=== PATIENT | female | born 1965 | race Caucasian/White ===

== ENCOUNTER → 2017-12-22 | Outpatient (CLI) | payer BC ==
--- NOTE | 2017-12-22 15:19 | US ---
EXAMINATION TYPE: US carotid duplex BILAT DATE OF EXAM: 12/22/2017 COMPARISON: NONE CLINICAL HISTORY: R55 Syncope. Numbness left neck, syncope EXAM MEASUREMENTS: RIGHT: Peak Systolic Velocity (PSV) cm/sec ----- Right CCA: 116 ----- Right ICA: 110 ----- Right ECA: 115 ICA/CCA ratio: 0.95 RIGHT: End Diastole cm/sec ----- Right CCA: 39.8 ----- Right ICA: 55.3 ----- Right ECA: 21.1 LEFT: Peak Systolic Velocity (PSV) cm/sec ----- Left CCA: 104 ----- Left ICA: 121 ----- Left ECA: 123 ICA/CCA ratio: 1.16 LEFT: End Diastole cm/sec ----- Left CCA: 30.1 ----- Left ICA: 42.0 ----- Left ECA: 18.9 VERTEBRALS (direction of flow): Right Vertebral: Antegrade Left Vertebral: Antegrade Rhythm: Normal Grayscale images show no significant plaque at carotid bulb level bilaterally. Velocity measurements and ratios in visualized portion of both internal carotid arteries is within normal limits. Increased peak systolic velocity in common carotid arteries raises concern for underlying hypertension. Correl ate clinically. IMPRESSION: No hemodynamically significant stenosis is seen in either internal carotid artery.
== END | disposition home or self-care (01) ==
LOC: RADUSWWP 14:49
PROVIDERS: ATTEND Family Medicine
DX: R55 Syncope and collapse (principal)
CPT/HCPCS: 93880

== ENCOUNTER → 2018-03-30 | Outpatient (CLI) | payer BC ==
--- NOTE | 2018-03-30 14:01 | BD ---
EXAMINATION TYPE: Axial Bone Density DATE OF EXAM: 03/30/2018 COMPARISON: 08.20.2015 CLINICAL HISTORY: 52 YR OLD FEMALE.....ICD-10 CODE: M89.9 OSTEOPENIA Height: 68.2 Weight: 185 FRAX RISK QUESTIONS: NOTHING TO NOTE HERE RISK FACTORS HISTORY OF: NOTHING BROKEN FROM AGE 49 ON Active: YES Diet low in dairy products/other sources of calcium: NO Postmenopausal woman: YES AT AGE 51 MEDICATIONS: STEROIDS ONLY WITH URI Additional Medications: VIT D Additional History: NONE TO NOTE EXAM MEASUREMENTS: Bone mineral densitometry was performed using the [employer] System. Bone mineral density as measured about the Lumbar spine is: ----- L1-L4(G/cm2): 1.184 T Score Values are as follows: ----- L1: -1.5 ----- L2: -0.3 ----- L3: 0.3 ----- L4: 0.9 ----- L1-L4: 0.0 Bone mineral density has: Increased 2.7% since study of: 08.20.2015 Bone mineral density about the R hip (g/cm2): 0.936 Bone mineral density about the L hip (g/cm2): 0.985 T Score values are as follows: -----R Neck: -1.3 -----L Neck: -0.7 -----R Total: -0.6 -----L Total: -0.2 Bone mineral density has: Decreased -0.9% since study of: 08.20.2015 FRAX%s: THERE IS A 5.8% CHANCE OF A MAJOR OSTEOPOROTIC FX AND A 0.4% FOR A HIP FX.....PROBABILITY OF FX IN 10 YRS TIME IMPRESSION: Osteopenia (T Score between -2.5 and -1) with regards to the right femur. There is slightly increased risk of fracture and the patient may be considered for treatment. Re-Screen 2-5 years. NOTE: T-SCORE=SD OF THE YOUNG ADULT MEAN.
--- NOTE | 2018-04-04 13:00 | MM ---
Reason for exam: screening (asymptomatic). Last mammogram was performed 2 years and 8 months ago. History: Benign right breast aspiration of the right breast, December 31, 2011. Benign right breast aspiration additional of the right breast, December 31, 2011. Excisional biopsy of the right breast, 2002. Took hormonal contraceptives for 2 years beginning at age 20. Physical Findings: A clinical breast exam by your physician is recommended on an annual basis and results should be correlated with mammographic findings. MG 3D Screening Mammo W/Cad Bilateral CC and MLO view(s) were taken. Prior study comparison: August 12, 2015, bilateral MG screening mammo w CAD. July 03, 2013, CAD bilateral diagnostic mammogram. The breast tissue is heterogeneously dense. This may lower the sensitivity of mammography. Finding: There are typically benign round, regional calcifications in the upper quadrant, anterior position of the right breast. There is no discrete abnormality. ASSESSMENT: Benign, BI-RAD 2 RECOMMENDATION: Routine screening mammogram of both breasts in 1 year.
== END | disposition home or self-care (01) ==
LOC: RADMAMWWP 07:33
PROVIDERS: ATTEND Obstetrics & Gynecology
DX: Z12.31 Encounter for screening mammogram for malignant neoplasm of breast (principal); M85.851 Other specified disorders of bone density and structure, right thigh
CPT/HCPCS: 77063; 77067; 77080

== ENCOUNTER 2018-10-06 08:01 | Day surgery (SDC) | payer BC ==
[2018-10-04 16:07] VITALS: BMI 26.2
[~2018-10-06 08:01] MED LIST: LACTATED RINGERS 1,000 ML IV SCH
[2018-10-06] MEDS ORDERED: LIDOCAINE 1% 20 ML VIAL (10MG/ML) FOR IV START INTRADERMA ONE (08:33)
[2018-10-06] MEDS ORDERED: ONDANSETRON 4 MG/2 ML VIAL IVP ONE (08:42)
[2018-10-06 08:48] VITALS: TEMP 97.4
[2018-10-06] MEDS ORDERED: PROPOFOL 10 MG/ML 20 ML VIAL IV ONE (09:20)
[2018-10-06] MEDS ORDERED: LIDOCAINE 1% INJ 10MG/ML (20 ML MDV) ONE (09:20)
--- NOTE | 2018-10-06 09:39 | P.PCN ---
Date of Procedure: 10/06/18 Procedure(s) Performed: BRIEF HISTORY: Patient is a 53-year-old pleasant white female, scheduled for an elective colonoscopy as a part of screening for colorectal neoplasia. She does have family history of colon cancer diagnosed in her mother at age 80. PROCEDURE PERFORMED: Colonoscopy. PREOPERATIVE DIAGNOSIS: Screening for colon cancer/family history of colon cancer. IV sedation per Anesthesia. PROCEDURE: After informed consent was obtained, the patient, was brought into the endoscopy unit. IV sedation was administered by Anesthesia under continuous monitoring. Digital rectal examination was normal. Initially the Olympus CF- 160 flexible video colonoscope was then inserted in the rectum, gradually advanced into the cecum without any difficulty. Careful examination was performed as the scope was gradually being withdrawn. Ileocecal valve and the appendiceal orifice were visualized and appeared normal. Prep was excellent. Mucosa of the cecum, ascending colon, transverse colon, descending colon, sigmoid colon, and rectum appeared normal. Retroflexion was performed in the rectum and no lesions were seen. The patient tolerated the procedure well. IMPRESSION: Normal-appearing colon from rectum to cecum with no evidence of colorectal neoplasia. RECOMMENDATIONS: Findings of this examination were discussed with the patient as well as a family. She was advised to have a repeat screening colonoscopy in 5 years because of a family history of colon cancer.
[2018-10-06 09:44] VITALS: RESP 18
[2018-10-06 09:58] VITALS: BP 123/82; PULSE 67
== END 2018-10-06 10:18 | disposition home or self-care (01) ==
LOC: ORWHC2ENDO 08:01
PROVIDERS: ATTEND Internal Medicine Gastroenterology
DX: Z12.11 Encounter for screening for malignant neoplasm of colon (principal); Z80.0 Family history of malignant neoplasm of digestive organs; Z88.5 Allergy status to narcotic agent
CPT/HCPCS: J2405; J2001; J2704; G0105

== ENCOUNTER → 2019-10-16 | Outpatient (CLI) | payer BC ==
[2019-10-16 13:42] LABS: Chol/HDL Ratio 3.17
== END | disposition home or self-care (01) ==
LOC: LABWHC1 07:10
PROVIDERS: ATTEND Internal Medicine Interventional Cardiology
DX: E78.2 Mixed hyperlipidemia (principal)
CPT/HCPCS: 36415; 80061; 84450; 84460

== ENCOUNTER → 2020-05-13 | Outpatient (CLI) | payer BC ==
--- NOTE | 2020-05-13 20:28 | CONS ---
CONSULTATION REASON FOR CONSULTATION: Loud snoring. A 55-year-old female patient, healthy with known history of grinding and TMJ, who wears a bite guide overnight given to her by her dentist. She is also concerned about sleep apnea as her has noted loud snoring and she has been told to stop breathing at night. She goes to bed around 11 p.m., wakes up at 7 a.m. in the morning. She drinks 1 cup of coffee in the morning and alcohol over the weekend. No nocturia. No episodes of waking in the middle of night, gasping for air or choking sensation. No restlessness in lower extremities. She has occasional nasal congestion and allergies. She occasionally wakes up with a dry mouth, yet this is not a consistent symptom. No sleepwalking. No sleep talking. No depression. No anxiety. No panic attacks. No parasomnias. Her weight was up during comorbid pandemic and she is currently losing weight, she is down by around 6 to 7 pounds. No other major comorbidities other than hyperlipidemia. PAST MEDICAL HISTORY: Hyperlipidemia, grinding of the teeth and TMJ. PAST SURGICAL HISTORY: Has surgery for a torn meniscus of the knee and endometriosis surgery. DRUG ALLERGIES: CODEINE. OUTPATIENT MEDICATION: Includes Crestor 20 mg p.o. daily. SOCIAL HISTORY: Nonsmoker. No history of alcoholism. No history of IV drugs. FAMILY HISTORY: The patient has a sister who is overweight. Mother and father have obstructive sleep apnea. REVIEW OF SYSTEMS: 14-point review of system was done. Positive findings are mentioned in history of present illness. Of significance is the absence of any significant sleepiness during the day to the point where the patient had to fall asleep while driving or talking to other individuals. No issues with memory or concentration. No issues with anxiety or depression. No issues with claustrophobia. No sexual dysfunction. No sleepwalking. No restlessness in lower extremities. No heartburn over night. No chest pain. No shortness of breath. She has grinding of teeth. PHYSICAL EXAMINATION: VITAL SIGNS: BP is 130/83, pulse 70, respirations 16, temperature 98.2. Saturation 97% on room air. [place] score is 8. BMI 27.8. Neck size is 13 inches. Weight is 183, height is 5 feet 8 inches. General appearance: Calm, comfortable. Head is atraumatic, normocephalic. NECK: Supple. Mallampati Class 2. No goiter or neck masses. She has slight overbite. LUNGS: Clear to auscultation. HEART: Heart sounds are regular rate and rhythm. Normal S1, S2. No S3, S4. No murmurs. ABDOMEN: Soft, nontender. No organomegaly. EXTREMITIES: No edema. No cyanosis or clubbing. NEUROLOGIC: Alert and oriented x3. No focal neurological deficits. PSYCHIATRIC: Negative for anxiety or depression. SKIN: Negative for any wounds or ulcerations. IMPRESSION: 1. Loud snoring. 2. Witnessed apneas. 3. Grinding of the teeth. Wearing a bite guard. 4. TMJ disease. 5. Hyperlipidemia. PLAN: Overall, there is a mild concern for obstructive sleep apnea based on the reported symptoms. Anatomically the patient has an overbite in addition to a Mallampati class 2- 3. She had gained weight recently and she is in the process of losing weight. No major hypersomnia. [place] score is at 8. She has TMJ. She is coming in for sleep apnea evaluation. I ordered a home sleep study. Based on the results we will make further recommendations. Severe disease would need CPAP therapy. Mild to moderate disease may be treated by an oral appliance. We will make final recommendations accordingly. Encourage further weight loss. MMODL / MAGDYN: [id number] /
== END | disposition home or self-care (01) ==
LOC: SLEEP 13:52
PROVIDERS: ATTEND Internal Medicine Critical Care Medicine
DX: G47.30 Sleep apnea, unspecified (principal); G47.63 Sleep related bruxism; R06.83 Snoring; M26.609 Unspecified temporomandibular joint disorder, unspecified side; E78.5 Hyperlipidemia, unspecified; Z88.5 Allergy status to narcotic agent
CPT/HCPCS: 99211

== ENCOUNTER → 2020-07-04 | Outpatient (CLI) | payer BC ==
--- NOTE | 2020-07-07 13:30 | MM ---
Reason for exam: screening (asymptomatic). Last mammogram was performed 2 years and 3 months ago. History: Benign right breast aspiration of the right breast, December 31, 2011. Benign right breast aspiration additional of the right breast, December 31, 2011. Excisional biopsy of the right breast, 2002. Took hormonal contraceptives for 2 years beginning at age 20. Physical Findings: A clinical breast exam by your physician is recommended on an annual basis and results should be correlated with mammographic findings. MG 3D Screening Mammo W/Cad Bilateral CC and MLO view(s) were taken. Prior study comparison: March 30, 2018, bilateral MG 3d screening mammo w/cad. August 12, 2015, bilateral MG screening mammo w CAD. The breast tissue is heterogeneously dense. This may lower the sensitivity of mammography. No significant changes when compared with prior studies. ASSESSMENT: Benign, BI-RAD 2 RECOMMENDATION: Routine screening mammogram of both breasts in 1 year.
== END | disposition home or self-care (01) ==
LOC: RADMAMWWP 16:28
PROVIDERS: ATTEND Obstetrics & Gynecology
DX: Z12.31 Encounter for screening mammogram for malignant neoplasm of breast (principal)
CPT/HCPCS: 77063; 77067

== ENCOUNTER → 2020-08-26 | Outpatient (CLI) | payer BC ==
--- NOTE | 2020-08-26 16:12 | PN ---
PROGRESS NOTE Marsha is 55, coming in for a compliance check regarding her obstructive sleep apnea. As mentioned earlier, she has history of grinding, TMJ, and she wears a bite guard. The patient was also diagnosed having obstructive sleep apnea which was mild in severity with an AHI of 15.2 at baseline, worse in the supine body position. Based on a further discussion, we offered the patient an APAP unit, and currently she is utilizing an APAP machine with a minimum pressure of 5 and a maximum pressure of 15. She is getting more accustomed. She is compliant. She was hoping to see better clinical benefit while on treatment. At times she wakes up in the middle of the night because of discomfort and leak around the mask. She is currently using an AirFit N30i nose piece. I checked the compliance data, and based on a 30-day compliancy data collection, the patient has been averaging around 5.7 hours of APAP use per night, and her CPAP use for more than 4 hours is approaching 70%. Her average pressure delivered by the machine, which is an APAP machine, is at 9.7 cm of water with a leak of 6 L/minute, and her AHI is down to 3.7. She has not given a final decision yet whether this is helping her. She thinks it is helping, and she may need some more time with the machine. REVIEW OF SYSTEMS: Fourteen-point review of systems was done. Positive findings are all mentioned above in the history of present illness. PHYSICAL EXAMINATION: BP is 149/77, pulse 70, respirations 16, temperature is 98.3. Saturation is 97% on room air. Weight is 184. GENERAL APPEARANCE: Calm, comfortable. HEAD: Atraumatic, normocephalic. NECK: Supple. No JVD. No goiter or neck masses. LUNGS: Clear to auscultation. HEART: Heart sounds are regular rate and rhythm. Normal S1, S2. No S3, S4. No murmurs. ABDOMEN: Soft, nontender. No organomegaly. EXTREMITIES: No edema. No cyanosis or clubbing. IMPRESSION: 1. Symptomatic obstructive sleep apnea; AHI of 15.2. Overall disease severity is mild. The patient has had some clinical response to CPAP therapy and she has demonstrated compliance. She wants to continue the treatment for the time being. 2. TMJ. Wearing a bite guard. 3. Chronic hypersomnia, improved slightly while on CPAP therapy. 4. History of grinding of the teeth. Wearing a bite guard. 5. Hyperlipidemia. PLAN: 1. Continue CPAP therapy for now at the same level of pressure. 2. I offered the patient an AirFit P30i nose mask/pillow as an alternative for the N30i. 3. The patient will meet me back in a year's time to discuss the clinical response. She is wearing the bite guard. She thinks that she is benefitting at this point in time, and she seems to be committed to continue the treatment for the time being. MMDELVISL / IJN: [id number] /
== END | disposition home or self-care (01) ==
LOC: SLEEP 14:49
PROVIDERS: ATTEND Internal Medicine Critical Care Medicine
DX: G47.33 Obstructive sleep apnea (adult) (pediatric) (principal); M26.609 Unspecified temporomandibular joint disorder, unspecified side; E78.5 Hyperlipidemia, unspecified; Z87.898 Personal history of other specified conditions; Z99.89 Dependence on other enabling machines and devices

== ENCOUNTER → 2022-06-11 | Outpatient (CLI) | payer BC ==
--- NOTE | 2022-06-14 19:53 | BD ---
EXAMINATION TYPE: Axial Bone Density DATE OF EXAM: 06/11/2022 COMPARISON: 03/30/2018 CLINICAL HISTORY: 57 years year old Female. ICD-10 CODE: Z780 POST MEOPAUSAL N951 PST MENOPAUSAL SYM Height: 68 Weight: 173.5 FRAX RISK QUESTIONS: Alcohol (3 or more units per day): NO Family History (Parent hip fracture): NO Glucocorticoids (More than 3mos): NO History of Fracture in Adulthood: KNEE Secondary Osteoporosis: 1. Type 1 Diabetes: NO 2. Hyperthyroidism: NO 3. Menopause before 45: NO 4. Malnutrition: NO 5. Chronic liver disease: NO Rheumatoid Arthritis: NO Current Tobacco Use: NO RISK FACTORS HISTORY OF: Hip Fracture (Right/Left): NO Spine Fracture: NO History of Wrist Fracture: NO Surgery to Spine/Hip(right/left)/Wrist (right/left): NO Family History of Osteoporosis: NO Active: YES Diet low in dairy products/other sources of calcium: YES Postmenopausal woman: YES Take estrogen and/or progesterone medications: NO Lost more than 2 inches in height since high school: NO Frequent falls: NO Poor Health: NO Hyperparathyroidism: NO Adrenal Insufficiency: NO MEDICATIONS: Prednisone or other steroids: NO Thyroid Medications: NO Osteoporosis Medications: NO Additional Medications: CHOLESTEROL MEDS, MULTI VIT., VIT D, ZINC EXAM MEASUREMENTS: Bone mineral densitometry was performed using the [employer] System. Bone mineral density as measured about the Lumbar spine is: ----- L1-L4(G/cm2): 1.051 T Score Values are as follows: ----- L1: -1.5 ----- L2: -2.3 ----- L3: -0.5 ----- L4: -0.6 ----- L1-L4: -1.1 Bone mineral density has: DECREASED -13.3 % since study of: 03/30/2018 Bone mineral density about the R hip (g/cm2): 0.824 Bone mineral density about the L hip (g/cm2): 0.902 T Score values are as follows: -----R Neck: -1.5 -----L Neck: -1.0 -----R Total: -0.8 -----L Total: -0.6 Bone mineral density has: DECREASED -4.2 % since study of: 03/30/2018 FRAX%s: The graph provided illustrates a 13.3% chance for a major osteoporotic fx and a 1.2% chance f or the hips probability for fx in 10 years time. IMPRESSION: Osteopenia (T Score between -2.5 and -1). There is slightly increased risk of fracture and the patient may be considered for treatment. Re-Screen 2-5 years. NOTE: T-SCORE=SD OF THE YOUNG ADULT MEAN.
--- NOTE | 2022-06-14 20:53 | MM ---
Reason for Exam: Screening (asymptomatic). Last mammogram was performed 1 year(s) and 11 month(s) ago. Patient History: Menarche at age 11. First Full-Term at age 23. Patient has history of breast feeding. Hormonal Contraceptives for 2 years from age 20 until age 22. 2002, Excisional Biopsy on the Right side. 12/31/2011, Benign Cyst Aspiration on the right side. 12/31/2011, Benign Cyst Aspiration on the right side. Last menstrual period: Risk Values: Shirley 5 year model risk: 1.4%. NCI Lifetime model risk: 8.1%. Prior Study Comparison: 12/23/2011 Right Diagnostic Mammogram, [facility]. 12/23/2011 Right Diagnostic Ultrasound, [facility]. 07/03/2013 Bilateral Diagnostic Mammogram, [facility]. 08/12/2015 Bilateral Screening Mammogram, [facility]. 03/30/2018 Bilateral Screening Mammogram, [facility]. 07/04/2020 Bilateral Screening Mammogram, [facility]. Tissue Density: The breast tissue is heterogeneously dense. This may lower the sensitivity of mammography. Findings: Analyzed By CAD. Unchanged regional punctate calcifications lateral right knee. No significant change from prior exams. Overall Assessment: Benign, BI-RAD 2 Management: Screening Mammogram of both breasts in 1 year. 1. Patient should continue monthly self breast exams. 2. A clinical breast exam by your physician is recommended on an annual basis. 3. This exam should not preclude additional follow-up of suspicious palpable abnormalities. Electronically signed and approved by: Socrates Banda M.D. Radiologist
== END | disposition home or self-care (01) ==
LOC: RADMAMWWP 15:22
PROVIDERS: ATTEND Obstetrics & Gynecology
DX: Z12.31 Encounter for screening mammogram for malignant neoplasm of breast (principal); M85.89 Other specified disorders of bone density and structure, multiple sites; Z78.0 Asymptomatic menopausal state
CPT/HCPCS: 77063; 77067; 77080

== ENCOUNTER → 2024-09-07 | Outpatient (CLI) | payer BC ==
--- NOTE | 2024-09-07 07:45 | MM ---
Reason for Exam: Clinical finding. Last mammogram was performed 2 year(s) and 3 month(s) ago. Patient History: Menarche at age 11. First Full-Term at age 23. Patient has history of breast feeding. Hormonal Contraceptives for 2 years from age 20 until age 22. 2002, Excisional Biopsy on the Right side. 12/31/2011, Benign Cyst Aspiration on the right side. 12/31/2011, Benign Cyst Aspiration on the right side. Risk Values: Shirley 5 year model risk: 1.5%. NCI Lifetime model risk: 7.7%. Tissue Density: The breasts are heterogeneously dense, which may obscure small masses. Findings: Analyzed By CAD. Bilateral areas of asymmetric density are unchanged. No significant change from prior exams. Overall Assessment: Incomplete: need additional imaging evaluation, BI-RAD 0 Management: Diagnostic Breast Ultrasound of the left breast. 1-2 o'clock targeted to the patient's site of pain. [facility], , 09/07/2024 7:41 AM. Electronically signed and approved by: Socrates Banda M.D. Radiologist
--- NOTE | 2024-09-07 08:14 | USB ---
Reason for Exam: Clinical finding. Patient History: Menarche at age 11. First Full-Term at age 23. Postmenopausal. Patient has history of breast feeding. Hormonal Contraceptives for 2 years from age 20 until age 22. 2002, Excisional Biopsy on the Right side. 12/31/2011, Benign Cyst Aspiration on the right side. 12/31/2011, Benign Cyst Aspiration on the right side. Risk Values: Shirley 5 year model risk: 1.5%. NCI Lifetime model risk: 7.7%. Prior Study Comparison: 08/26/2015 Left Diagnostic Ultrasound, [facility]. 03/30/2018 Bilateral Screening Mammogram, [facility]. 07/04/2020 Bilateral Screening Mammogram, [facility]. 06/11/2022 Bilateral MG 3D screening mammo w/cad, [facility]. Findings: The axilla of the left breast and the retroareolar of the left breast were scanned. Targeted ultrasound upper outer quadrant left breast at the site of patient's pain especially 1:00 to 3:00 area. Additional scanning of the subareolar region and axilla. There is no solid or cystic lesion or axillary adenopathy. Overall Assessment: Benign, BI-RAD 2 Management: Screening Mammogram of both breasts in 1 year. A clinical breast exam by your physician is recommended on an annual basis and results should be correlated with mammographic findings. This exam should not preclude additional follow-up of suspicious palpable abnormalities. Results were given to the patient verbally at the time of exam. [facility], , 09/07/2024 8:10 AM. Electronically signed and approved by: Socrates Banda M.D. Radiologist
== END | disposition home or self-care (01) ==
LOC: RADMAMWWP 07:21
PROVIDERS: ATTEND Family Medicine
DX: R92.2 Inconclusive mammogram (principal); R92.333 Mammographic heterogeneous density, bilateral breasts; N64.4 Mastodynia; Z78.0 Asymptomatic menopausal state
CPT/HCPCS: 77062; 77066